=== PATIENT | female | born 1995 | race Caucasian/White ===

== ENCOUNTER 2019-09-21 12:15 | Outpatient (CLI) | payer OTHER, SELFPAY ==
--- NOTE | ~2019-09-21 | US_ITS ---
EXAMINATION: US OB <=14 wk fetus w TV DATE: 09/21/2019 13:01 INDICATION: Threatened . Spotting. TECHNIQUE: Real-time transabdominal and transvaginal pelvic ultrasound was performed. COMPARISON: None. FINDINGS: TRANSABDOMINAL ULTRASOUND: The uterus measures 11.6 x 6.8 x 4.9 cm. TRANSVAGINAL ULTRASOUND: There is an intrauterine gestational sac. A yolk sac is identified. The fet al crown rump length measures 0.4, which correlates with an estimated gestational age of 6 weeks and 1 day(s) (+/-) 4 day(s). heart motion is identified measuring 116 beats per minute (bpm) by M-m ode Doppler. There are 2 small subchorionic hematomas. The right ovary measures 3.0 x 1.4 x 1.6 cm. T he left ovary measures 3.8 x 2.8 x 2.4 cm. There is no free fluid in the pelvis. IMPRESSION: 1. Single living intrauterine gestation with estimated date of delivery of 05/15/2020. 2. Two small subchorionic hematomas. Reviewed, dictated and finalized at location A.
== END 2019-09-21 12:16 | disposition home or self-care (01) ==
PROVIDERS: PCP Family Medicine; Visit Provider Obstetrics & Gynecology
DX: O20.0 Threatened abortion (principal); O36.8911 Maternal care for other specified fetal problems, first trimester, fetus 1
CPT/HCPCS: 76801; 76817

== ENCOUNTER 2020-03-01 10:01 | Observation (INO) | payer OTHER, SELFPAY ==
[2020-03-01] VITALS (13 sets, daily range): BP systolic 99–106; BP diastolic 49–60; PULSE 77–93; O2SAT 100; BMI 34.0
[2020-03-01 11:40] LABS: Add Urine Microscopic? YES; Appearance Urine Cloudy (Clear); Bacteria Urine Trace /hpf; Bilirubin Urine Negative (Negative); Blood Urine Negative (Negative); Color Urine Yellow (Yellow); Glucose Urine UA Negative (Negative); Ketones Urine Negative (Negative); Leukocyte Esterase Ur 2+ LEU/UL (NEGATIVE); Mucus Urine Moderate /lpf; Nitrate Urine Negative (Negative); Protein Urine Negative (Negative); RBC Urine 0-2 /hpf (0-2); Specific Grav Ur 1.021 (1.001-1.035); Squamous Epithelial Cell Urine Many /hpf (Few); Urobilinogen Urine Negative mg/dL (<2.0)
[2020-03-01] MEDS: TERBUTALINE SULFATE 1 MG/ML VIAL 0.25 MG SUB-Q (12:32)
--- NOTE | 2020-03-01 12:37 | PM.OBTRLD ---
OB - Triage/Final Diagnosis Visit Information Date of evaluation: 03/01/20 Reason for evaluation: threatened labor and other (uti) Evaluation Laboratory results: Laboratory Tests 03/01/20 11:25 Urine Color Yellow Urine Appearance Cloudy H Urine pH 6.0 Ur Specific [place] 1.021 Urine Protein Negative Urine Glucose (UA) Negative Urine Ketones Negative Ur Blood (Man) Negative Urine Nitrate Negative Urine Bilirubin Negative Urine Urobilinogen Negative Ur Leukocyte Esterase 2+ H Urine RBC 0-2 Urine WBC 10-15 H Ur Squamous Epith Cells Many H Urine Bacteria Trace Urine Mucus Moderate H Vital signs: Vital Signs - 24 hr 03/01/20 10:25 03/01/20 10:27 03/01/20 10:30 Pulse Rate 93 Blood Pressure 105/60 Pulse Oximetry 100 100 03/01/20 10:31 03/01/20 10:35 03/01/20 10:40 Pulse Rate 88 Blood Pressure 106/49 L Pulse Oximetry 100 100 03/01/20 10:45 03/01/20 10:46 03/01/20 10:50 Pulse Rate 86 Blood Pressure 99/57 L Pulse Oximetry 100 100 03/01/20 10:55 03/01/20 11:00 03/01/20 11:01 Pulse Rate 86 Blood Pressure 105/58 L Pulse Oximetry 100 100 03/01/20 11:05 Pulse Rate Blood Pressure Pulse Oximetry 100
[2020-03-01 13:20] LABS: Fetal Fibronectin Negative
== END 2020-03-01 13:40 | disposition home or self-care (01) ==
PROVIDERS: Admitting Provider Obstetrics & Gynecology; PCP Family Medicine; Visit Provider Obstetrics & Gynecology
DX: O47.9 False labor, unspecified (principal); O23.40 Unspecified infection of urinary tract in pregnancy, unspecified trimester; Z3A.00 Weeks of gestation of pregnancy not specified
CPT/HCPCS: 81001; 82731; 87077; 87086; 87088; 96372; G0378; G0379; J3105

== ENCOUNTER 2020-03-29 21:10 | Observation (INO) | payer OTHER, SELFPAY ==
[2020-03-29 21:34] VITALS: TEMP 36.4; BMI 36.6
[2020-03-29 21:39] VITALS: BP 102/56; PULSE 84
[2020-03-29 23:36] LABS: Add Urine Microscopic? YES; Appearance Urine Cloudy (Clear); Bacteria Urine Trace /hpf; Bilirubin Urine Negative (Negative); Blood Urine Negative (Negative); Color Urine Yellow (Yellow); Glucose Urine UA Negative (Negative); Ketones Urine Negative (Negative); Leukocyte Esterase Ur 1+ LEU/UL (NEGATIVE); Mucus Urine Heavy /lpf; Nitrate Urine Negative (Negative); Protein Urine 1+ mg/dL (Negative); Squamous Epithelial Cell Urine Many /hpf (Few); Urobilinogen Urine Negative mg/dL (<2.0); WBC Urine 21-30 /hpf (0-3)
--- NOTE | 2020-03-30 00:24 | OBADM ---
This patient, Elvi Brewster, admitted to the OB room OB Post 115 for observation. Patient/family oriented to hospital policies and general routines including ID bracelet, bed and alarms, visiting hours, pain management, procedures, bathroom and other care routines, personal items, smoking policy, room service/diet, and visiting hours. Patient/Family are encouraged to report perceived risks to care and to ask questions if they do not understand what they are told or what they should do.
--- NOTE | 2020-04-11 13:10 | PM.OBTRLD ---
OB - Triage/Final Diagnosis Evaluation Laboratory results: Laboratory Tests 03/29/20 23:14 Urine Color Yellow Urine Appearance Cloudy H Urine pH 5.0 Ur Specific [place] 1.030 Urine Protein 1+ H Urine Glucose (UA) Negative Urine Ketones Negative Ur Blood (Man) Negative Urine Nitrate Negative Urine Bilirubin Negative Urine Urobilinogen Negative Ur Leukocyte Esterase 1+ H Urine RBC 3-5 H Urine WBC 21-30 H Ur Squamous Epith Cells Many H Urine Bacteria Trace Urine Mucus Heavy H Final Diagnosis (1) False labor: Code(s): O47.9 - False labor, unspecified Status: Acute
== END 2020-03-30 00:19 | disposition home or self-care (01) ==
PROVIDERS: Admitting Provider Obstetrics & Gynecology; PCP Family Medicine; Visit Provider Obstetrics & Gynecology
DX: O47.9 False labor, unspecified (principal); Z3A.00 Weeks of gestation of pregnancy not specified
CPT/HCPCS: 81001; 87086; 87088; G0378; G0379

== ENCOUNTER 2020-04-25 21:26 | Observation (INO) | payer OTHER, SELFPAY ==
[2020-04-25 22:00] VITALS: TEMP 36.9
--- NOTE | 2020-04-25 22:00 | OBADM ---
This patient, Elvi Brewster, admitted to the OB room Labor/Delivery/Recovery 120 for observation. Patient/family oriented to hospital policies and general routines including ID bracelet, bed and alarms, visiting hours, pain management, procedures, bathroom and other care routines, personal items, smoking policy, room service/diet, and visiting hours. Patient/Family are encouraged to report perceived risks to care and to ask questions if they do not understand what they are told or what they should do.
--- NOTE | 2020-04-25 22:55 | PC.NURSE ---
Pt states contractions have decreased. Has occasional one and rates as 1-2. ROM plus in negative. Update Dr. Giancarlo Smallwood. Will discharge home.
[2020-04-26 00:36] VITALS: BMI 37.8
--- NOTE | 2020-04-29 23:20 | PM.OBTRLD ---
OB - Triage/Final Diagnosis Visit Information Reason for evaluation: threatened labor
== END 2020-04-25 23:00 | disposition home or self-care (01) ==
PROVIDERS: Admitting Provider Obstetrics & Gynecology; PCP Family Medicine; Visit Provider Obstetrics & Gynecology
DX: O47.03 False labor before 37 completed weeks of gestation, third trimester (principal); Z3A.37 37 weeks gestation of pregnancy
CPT/HCPCS: 84112; G0378; G0379

== ENCOUNTER 2020-05-04 07:59 | Outpatient (CLI) | payer OTHER, SELFPAY ==
[2020-05-04 08:46] LABS: Basophils Percent Auto 0.4 % (0.2-1.2); Eosinophils Absolute Auto 0.3 K/mm3 (0-0.3); Eosinophils Percent Auto 2.4 % (0-4.4); Hematocrit 28.7 % (37.0-47.0); Hemoglobin 8.2 g/dL (12.0-15.0); Immature Granulocyte Absolute 0.04 K/mm3 (0.00-0.031); Immature Granulocyte Percent A 0.4 % (0-0.5); Lymphocytes Absolute Auto 2.15 K/mm3 (0.9-3.2); Lymphocytes Percent Auto 20.3 % (18.3-44.2); Mean Corpuscular HGB Conc 28.6 g/dl (32-36); Mean Corpuscular Hemoglobin 18.7 pg (26-34); Mean Corpuscular Volume 65.4 fl (80-100); Mean Platelet Volume 10.3 fl (7.4-10.4); Monocytes Absolute Auto 0.7 K/mm3 (0.1-0.6); Monocytes Percent Auto 6.5 % (2.6-8.5); Neutrophils Absolute Auto 7.4 K/mm3 (1.3-6.7); Platelet Count Result 293 k/mm3 (150-375); Red Blood Count 4.39 M/mm3 (4.2-5.4); Red Cell Distribution Width 19.1 % (11.5-14.5); White Blood Count 10.6 K/mm3 (4.5-10.0)
[2020-05-04 09:37] LABS: Ovalocytes 2+ (NORMAL); Platelet Estimate Adequate (Adequate)
[2020-05-06 07:02] LABS: Rapid Plasma Reagin Non-Reactive (NonReactive)
== END 2020-05-04 08:00 | disposition home or self-care (01) ==
PROVIDERS: PCP Family Medicine; Visit Provider Obstetrics & Gynecology
DX: O34.218 Maternal care for other type scar from previous cesarean delivery (principal); Z3A.34 34 weeks gestation of pregnancy
CPT/HCPCS: 36415; 85025; 86592; 86850; 86900; 86901

== ENCOUNTER 2020-05-06 07:29 | Inpatient (IN) | payer OTHER, SELFPAY ==
--- NOTE | 2020-04-16 15:01 | PC.NURSE ---
VERIFIED WITH OR SCHEDULE AND PATIENT--C/S ON 05/06/20 AT 0900 PATIENT GIVEN REQUISITION FOR LAB DRAW ON 05/04/2020
--- NOTE | 2020-04-30 09:57 | PM.IMHP ---
H&P: HPI History of Present Illness Date/Time: 04/30/20 09:57 Chief complaint: Pre-admit Narrative: Elvi Brewster is a 24 year old female Para 3 para 2 1 menstrual period was 08/05/2019 whose EDC is 05/03/2020 presents at term for repeat section. She is negative for group B strep. She has had 2 previous sections. Her had been uncomplicated Review of Systems Review of Systems: All systems reviewed & are unremarkable except as noted in HPI and below PMFSH Family History Family History Father Diabetes mellitus Hypertension Grandparent Diabetes mellitus Pacemaker Grandparent Heart attack Social History Social History Substance use: never Spiritual care concerns: No Meds Home Medications and Allergies Home Medications Medication Instructions Recorded Confirmed Type ferrous sulfate 1 mg PO DAILY 03/29/20 03/29/20 History Allergies Allergy/AdvReac Type Severity Reaction Status Date / Time No Known Allergies Allergy Verified 04/16/20 14:43 Exam Const: General: no acute distress Eyes: General: appearance normal, both eyes and all related structures Neck: Neck: supple and no JVD Thyroid: thyroid normal Resp: Effort & Inspection: normal respiratory effort Auscultation: clear to auscultation bilaterally Cardio: Rate: regular rate Rhythm: regular rhythm GI: Inspection: non-distended GI Palp: Yes Soft to palpation, No Tenderness to palpation present (GI) and No Guarding due to palpation present (GI) Auscultation: normal bowel sounds : General: Yes other ( gravid soft uterus) Skin: General skin exam: no rashes or lesions noted Extrem: General: normal to inspection and no edema Psych: Mental Status: mental status grossly normal Affect: normal affect Assessment and Plan Additional Plan impression: Term with previous section Plan: Repeat low-transverse section and
[2020-05-06] VITALS (60 sets, daily range): BP systolic 77–178; BP diastolic 40–153; PULSE 54–130; RESP 14–19; TEMP 36.4–37; O2SAT 89–100; BMI 38.3
--- NOTE | 2020-05-06 06:42 | WPDHPUPDATE1 ---
History and Physical Update Update Date/Time: 05/06/20 06:42 History and Physical has been reviewed, including an updated exam of the patient. There are NO changes in the patient's condition. Risks, benefits, and alternatives have been discussed and questions answered. Patient agrees to proceed with procedure.
--- NOTE | 2020-05-06 07:55 | LDADM ---
This patient, Elvi Brewster, was admitted to Labor/Delivery/Recovery 119 on 05/06/20 at 07:29. Plans for scheduled section, pain management and were discussed with patient. Patient/family oriented to hospital policies and general routines including ID bracelet, bed and alarms, visiting hours, pain management, procedures, bathroom and other care routines, personal items, smoking policy, room service/diet and guest tray routines, security routines, and visiting hours. Patient/Family are encouraged to report perceived risks to care and to ask questions if they do not understand what they are told or what they should do. See OBIX for further documentation.
[2020-05-06] MEDS: LACTATED RINGERS 1,000 ML 125 ML IV CONT ×2 (08:05→10:28)
[2020-05-06] MEDS: KETOROLAC 30 MG/ML VIAL (*BKC) IV PUSH ×2 (09:50→15:08)
--- NOTE | 2020-05-06 10:00 | PM.PROC ---
Procedure Note - Detailed Date of procedure: 05/06/20 Pre-op diagnosis: section Surgeon: Paolo Freeman MD Postop diagnosis: Term / previous section Procedure: Repeat low-transverse section Q BL: 365cc Anesthesia: Spinal Findings: 6 lb 9 oz female with Apgars of 8 and 9 at 1 and 5 minutes respectively Complications: None Description of procedure: The patient is prepped and draped in normal sterile fashion placed in the supine position. Under excellent spinal anesthetic the abdomen was entered in Pfannenstiel fashion progress her layers to the fascia. Fascia was incised in an upward outward fashion bilaterally. The underlying muscles were sharply dissected. Prior peritoneum entered by Tata clamps and entered by sharp dissection superiorly and inferiorly to the dome bladder. Bladder flap was obstructed bladder blade was placed a bladder flap formed and the bladder blade returned. A low transverse incision made. The head was delivered in the HAMMAD position . anterior and posterior shoulders were delivered. The cord clamped x2 and cut. passed off the table. Apgars were given at of 1 minute at 8 and 9 [id number]. Cord blood was drawn post. Placenta delivered intact spontaneously. After assuring no membranes or remainder of the uterus, the uterus was closed with continuous running 0 Vicryl from lateral edge to lateral edge. This was followed by a 2nd imbricating running locking 0 Vicryl from lateral edge to lateral edge. Hemostasis was assured. Ovaries and tubes appeared within normal limits. The uterus returned to the abdomen. The laps removed and accounted for. The incision on the uterus inspected 1 last time and noted to be hemostatic. The laps removed and the skin fascia closed with continuous running 0 Vicryl from lateral edge to midline bilaterally. Irrigation of the subcutaneous layer was followed by closure of the skin with 4 O Monocryl and glue. Blood loss by Q BL was 365cc. Mom and baby are doing fine at the time of dictation. All sponge, needle, instrument counts were correct. There were no immediate complications
--- NOTE | 2020-05-06 10:25 | P.PNAN_ITS ---
Anes - Initial Pre Proc Eval Procedure: Operation Date: 05/06/20 09:00 Proposed Procedures p Repeat Section - Paolo Freeman MD Date/Time: 05/06/20 10:25 Surgeon: Paolo Freeman MD Pre Op Diagnosis: section Patient Data Age: 24 Gender: F Height: 1.52 m Weight: 89 kg Last Vital Signs Temp 36.4 C L 05/06/20 08:16 Pulse 70 05/06/20 10:21 BP 108/47 L 05/06/20 10:21 Pulse Ox 100 05/06/20 10:21 Allergies Allergy/AdvReac Type Severity Reaction Status Date / Time No Known Allergies Allergy Verified 04/16/20 14:43 Home Medications Medication Instructions Recorded Confirmed Type hydrocodone-acetaminophen [[place]] 1 tablet PO Q4H PRN #30 tablet 05/06/20 Rx Patient hx anesthesia problems: none Family hx anesthesia problems: none PMFSH Past Medical History Medical History (Updated 05/06/20 @ 10:25 by Rickie Shearer DO) Anemia Asthma Family History Family History Father Diabetes mellitus Hypertension Grandparent Diabetes mellitus Pacemaker Grandparent Heart attack Social History Social History Smoking status: Never smoker Substance use: never Spiritual care concerns: No Anes - Eval Final PreProcedure Day of Procedure 05/06/20 10:25 Patient weight: obese Heart: regular rate and rhythm Lungs: clear to auscultation and normal air movement Airway: Mallampati scale class II Neurological: alert and oriented Last oral intake: >/= 8 hours ASA classification: III Emergent: no Anesthetic plan: proceed Anesthesia type and monitoring: regional spinal and standard monitoring Informed Consent: The patient's anesthetic plan and its attendant risks and benefits were discussed with the patient/family/POA. Questions were solicited and answers provided to the satisfaction of the patient/family/POA.
[2020-05-06] MEDS: OXYTOCIN 30 UNITS/NS 500 ML 30 UNITS/500 ML BAG 125 UNITS IV CONT (10:55)
[2020-05-06] MEDS: ONDANSETRON INJ 4 MG/2 ML VIAL (12:28)
--- NOTE | 2020-05-06 13:36 | PC.NURSE ---
This patient, Elvi Brewster, was received from PACU on 05/06/20 at 1230. Patient/family oriented to unit policies and routines
[2020-05-06] MEDS: KCL 20 MEQ/D5/0.45% SOD CHL 1,000 ML 125 ML IV CONT (15:11)
[2020-05-06] MEDS: diphenhydrAMINE HCl INJ 50 MG/ML VIAL 25 MG IV PUSH (18:30)
[2020-05-07] VITALS: BP 105/52; PULSE 96; RESP 16; TEMP 37.2; O2SAT 100
[2020-05-07 04:15] VITALS: BP 105/51; PULSE 86; RESP 16; TEMP 37.2; O2SAT 100
[2020-05-07] MEDS: IBUPROFEN 600 MG TABLET PO ×2 (04:21→12:42)
[2020-05-07 05:30] LABS: Basophils Absolute Auto 0.1 K/mm3 (0.0-0.1); Basophils Percent Auto 0.4 % (0.2-1.2); Eosinophils Absolute Auto 0.2 K/mm3 (0-0.3); Eosinophils Percent Auto 1.6 % (0-4.4); Hematocrit 23.9 % (37.0-47.0); Immature Granulocyte Absolute 0.05 K/mm3 (0.00-0.031); Immature Granulocyte Percent A 0.4 % (0-0.5); Lymphocytes Percent Auto 15.6 % (18.3-44.2); Mean Corpuscular HGB Conc 29.3 g/dl (32-36); Mean Corpuscular Volume 64.9 fl (80-100); Monocytes Absolute Auto 1.1 K/mm3 (0.1-0.6); Monocytes Percent Auto 8.8 % (2.6-8.5); Neutrophils Absolute Auto 9.4 K/mm3 (1.3-6.7); Neutrophils Percent Auto 73.2 % (45.5-73.1); Platelet Count Result 249 k/mm3 (150-375); Red Blood Count 3.68 M/mm3 (4.2-5.4); White Blood Count 12.8 K/mm3 (4.5-10.0)
--- NOTE | 2020-05-07 06:45 | PM.OBPNVD ---
OB - PN: Subj Subjective Date/time seen: 05/07/20 06:46 Patient comments: no complaints and pain well controlled baby status: doing well OB - PN: Obj Data Labs CBC & Chem 7: 05/07/20 04:33 OB - PN A/P Plan day: 1 Plan: routine care Time Spent With Patient Time: Total time spent is greater than 50% in coordination of care (as documented) at patient's floor/unit and/or counseling patient: Time with patient: less than 15 minutes Review of Systems Review of Systems: All systems reviewed & are unremarkable except as noted in HPI and below Exam Const: General: no acute distress Eyes: General: appearance normal, both eyes and all related structures Neck: Neck: supple and no JVD Thyroid: thyroid normal Resp: Effort & Inspection: normal respiratory effort Auscultation: clear to auscultation bilaterally Cardio: Rate: regular rate Rhythm: regular rhythm GI: Inspection: normal to inspection, incision (clean dry intact) and striae GI Palp: Yes Soft to palpation Percussion: Yes normal to percussion Auscultation: normal bowel sounds : General: Yes bladder normal to palpation External Female Exam: normal external appearance Speculum Exam - Vagina: normal vaginal discharge and No vaginal bleeding Speculum Exam - Cervix: nontender Bimanual exam- vagina & uterus: bladder normal to palpation and No Cervical tenderness present OB/external & speculum: No vaginal bleeding Skin: General skin exam: no rashes or lesions noted Extrem: General: normal to inspection and no edema Psych: Mental Status: mental status grossly normal Affect: normal affect
[2020-05-07 06:49] LABS: Anisocytosis 2+ (NORMAL); Hypochromasia 1+ (NORMAL); Platelet Estimate Adequate (Adequate)
[2020-05-07 08:25] VITALS: BP 107/60; PULSE 80; RESP 16; TEMP 36.9; O2SAT 100
[2020-05-07 11:02] VITALS: PULSE 80; RESP 16; O2SAT 100
[2020-05-07] MEDS: MULTIVIT/MIN/PREN/FOL AC/IRON TABLET 1 TAB PO (11:02)
[2020-05-07] MEDS: POLYSACCHARIDE IRON COMPLEX 150 MG CAPSULE PO ×2 (11:02→17:02)
--- NOTE | 2020-05-07 11:07 | WPDANLDPN2 ---
Anes-Prog Note L&D Date/Time: 05/07/20 11:07 Comfortable throughout: section Neuraxial method: spinal Epidural/Spinal procedure site: clean & non-tender Neuro status: Neuro function grossly intact. Cardiovascular status: normal Respiratory status: normal Airway patency: baseline Mental status: baseline Post-Op hydration status: normal Vital Signs: Last Vital Signs Temp 36.9 C 05/07/20 08:25 Pulse 80 05/07/20 08:25 Resp 16 05/07/20 08:25 BP 107/60 05/07/20 08:25 Pulse Ox 100 05/07/20 08:25 Pain score (VAS): 3 I/O: Intake & Output 05/06/20 05/07/20 05/07/20 23:59 07:59 15:59 Intake Total 500 750 Output Total 750 1050 Balance -250 -300 Post-procedural complaints: none Patient feedback: Patient satisfied with anesthetic care.
--- NOTE | 2020-05-07 11:07 | WPDANLDNPN2 ---
Anes-Prog Note L&D-Neuraxial Date/Time: 05/07/20 11:07 Neuraxial medications: intrathecal PF morphine Opiod-related complaints: none Patient feedback: Patient satisfied with post-operative pain management.
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
[2020-05-07] MEDS: ACETAMINOPHEN 325 MG TABLET 650 MG PO (17:04)
[2020-05-07] MEDS: SIMETHICONE 80 MG TAB.CHEW PO (17:05)
[2020-05-07 19:00] VITALS: BP 120/65; PULSE 80; RESP 16; TEMP 37.1
[2020-05-08] MEDS: SIMETHICONE 80 MG TAB.CHEW PO ×2 (04:40→08:52)
[2020-05-08] MEDS: IBUPROFEN 600 MG TABLET PO (04:41)
[2020-05-08] MEDS: ACETAMINOPHEN 325 MG TABLET 650 MG PO (04:42)
--- NOTE | 2020-05-08 06:29 | PM.DS ---
DS: Admitting Diagnosis Admitting Diagnosis Admitting Diagnosis: section Term with previous section DS: Summary Time Spent with Patient Time attestation: Total time spent providing and/or coordinating discharge services: patient was admitted for repeat section. Underwent an unremarkable procedure please see the details. Remained afebrile, was up, [place] difficulty, passing gas, eating regular diet, and generally thought complaints. She did have a low hemoglobin of 7.0 but that was down from 8.2 preop and she was instructed to take iron sulfate. Exam Const: General: no acute distress Eyes: General: appearance normal, both eyes and all related structures Neck: Neck: supple and no JVD Thyroid: thyroid normal Resp: Effort & Inspection: normal respiratory effort Auscultation: clear to auscultation bilaterally Cardio: Rate: regular rate Rhythm: regular rhythm GI: Inspection: non-distended GI Palp: Yes Soft to palpation, No Tenderness to palpation present (GI) and No Guarding due to palpation present (GI) Auscultation: normal bowel sounds : General: Yes bladder normal to palpation External Female Exam: normal external appearance Speculum Exam - Vagina: normal vaginal discharge and No vaginal bleeding Speculum Exam - Cervix: nontender Bimanual exam- vagina & uterus: bladder normal to palpation and No Cervical tenderness present OB/external & speculum: No vaginal bleeding Skin: General skin exam: no rashes or lesions noted Extrem: General: normal to inspection and no edema Psych: Mental Status: mental status grossly normal Affect: normal affect DS: Data Data Completed and Pending Labs on day of discharge: Labs from last 24 hours 05/07/20 04:33 WBC 12.8 H RBC 3.68 L Hgb 7.0 L Hct 23.9 L MCV 64.9 L MCH 19.0 L MCHC 29.3 L RDW 19.0 H Plt Count 249 MPV 11.0 H Immature Gran % (Auto) 0.4 Neut % (Auto) 73.2 H Lymph % (Auto) 15.6 L [place] % (Auto) 8.8 H Eos % (Auto) 1.6 Baso % (Auto) 0.4 Lymph # (Auto) 2.00 [place] # (Auto) 1.1 H Eos # (Auto) 0.2 Baso # (Auto) 0.1 Abs Immat Gran (auto) 0.05 H Absolute Neuts (auto) 9.4 H Absolute Nucleated RBC 0.0 Nucleated RBC % 0.0 Platelet Estimate Adequate Hypochromasia 1+ Anisocytosis 2+ Discharge Plan Discharge Attending physician on discharge: Paolo Freeman Discharging Clinician: Paolo Freeman Patient Disposition: Home, Self-Care Activity: may shower, no straining, may drive after 2 weeks and pelvic rest Diet: heart healthy Wound Care Instructions: follow printed instructions Patient Instructions: Antibiotic Form Stand Alone Forms: General Discharge Information Follow-up/Referrals: Paolo Freeman MD [Physician] - Discharge Medications: New hydrocodone-acetaminophen [[place]] 5-325 mg tablet 1 tablet PO Q4H PRN (Reason: pain) Qty: 30 RF: 0 Date of admission: 05/06/20 07:29 Primary Care Provider: Lucina,Araceli Mays Admitting Provider: Paolo Freeman Attending physician on admission: Paolo Freeman Condition: Stable
--- NOTE | 2020-05-08 06:32 | P.PNOB_ITS ---
OB - PN: Subj Subjective Date/time seen: 05/08/20 06:32 Patient comments: no complaints and pain well controlled baby status: doing well and nursing well OB - PN: Obj Data Labs CBC & Chem 7: 05/07/20 04:33 Labs: Laboratory Results - last 24 hr 05/07/20 04:33 WBC 12.8 H RBC 3.68 L Hgb 7.0 L Hct 23.9 L MCV 64.9 L MCH 19.0 L MCHC 29.3 L RDW 19.0 H Plt Count 249 MPV 11.0 H Immature Gran % (Auto) 0.4 Neut % (Auto) 73.2 H Lymph % (Auto) 15.6 L [place] % (Auto) 8.8 H Eos % (Auto) 1.6 Baso % (Auto) 0.4 Lymph # (Auto) 2.00 [place] # (Auto) 1.1 H Eos # (Auto) 0.2 Baso # (Auto) 0.1 Abs Immat Gran (auto) 0.05 H Absolute Neuts (auto) 9.4 H Absolute Nucleated RBC 0.0 Nucleated RBC % 0.0 Platelet Estimate Adequate Hypochromasia 1+ Anisocytosis 2+ OB - PN A/P Plan day: 2 Plan: routine care, discharge home and follow up 6 weeks (4 weeks) Time Spent With Patient Time: Total time spent is greater than 50% in coordination of care (as documented) at patient's floor/unit and/or counseling patient: Time with patient: less than 15 minutes Review of Systems Review of Systems: All systems reviewed & are unremarkable except as noted in HPI and below Exam Const: General: no acute distress Eyes: General: appearance normal, both eyes and all related structures Neck: Neck: supple and no JVD Thyroid: thyroid normal Resp: Effort & Inspection: normal respiratory effort Auscultation: clear to auscultation bilaterally Cardio: Rate: regular rate Rhythm: regular rhythm GI: Inspection: non-distended GI Palp: Yes Soft to palpation, No Tenderness to palpation present (GI) and No Guarding due to palpation present (GI) Auscultation: normal bowel sounds : General: Yes bladder normal to palpation External Female Exam: normal external appearance Speculum Exam - Vagina: normal vaginal discharge and No vaginal bleeding Speculum Exam - Cervix: nontender Bimanual exam- vagina & uterus: bladder normal to palpation and No Cervical tenderness present OB/external & speculum: No vaginal bleeding Skin: General skin exam: no rashes or lesions noted Extrem: General: normal to inspection and no edema Psych: Mental Status: mental status grossly normal Affect: normal affect
[2020-05-08 08:15] VITALS: BP 109/59; PULSE 89; RESP 16; TEMP 36.5; O2SAT 100
[2020-05-08] MEDS: MULTIVIT/MIN/PREN/FOL AC/IRON TABLET 1 TAB PO (08:51)
[2020-05-08] MEDS: POLYSACCHARIDE IRON COMPLEX 150 MG CAPSULE PO (08:51)
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
[2020-05-10 15:22] VITALS: BP 135/70; PULSE 110; RESP 20; TEMP 37.1; O2SAT 100
== END 2020-05-08 10:15 | disposition home or self-care (01) | DRG 540 ==
LOC: ANHLDR 07:32 → ANHOB2 12:36
PROVIDERS: Admitting Provider Obstetrics & Gynecology; PCP Family Medicine; Visit Provider Obstetrics & Gynecology
PROC: 10D00Z1 Extraction of Products of Conception, Low, Open Approach (ICD-10-PCS; CPT 59514; principal; 2020-05-06 09:00)
DX: O34.211 Maternal care for low transverse scar from previous cesarean delivery (principal); Z3A.39 39 weeks gestation of pregnancy; Z37.0 Single live birth; O99.214 Obesity complicating childbirth; E66.9 Obesity, unspecified
CPT/HCPCS: 36415; 85025; A9270; J0131; J0461; J1200; J1885; J2274; J2370; J2405; J2590; J3480; J7120

== ENCOUNTER 2021-01-16 10:28 | Emergency (ER) | payer OTHER, SELFPAY ==
--- NOTE | 2021-01-16 10:33 | ED.GENADULT ---
HPI - General Adult General Chief complaint: Upper Respiratory Infection Stated complaint: sore throat, chest pain with inspiration 3 days Time Seen by Provider: 01/16/21 10:32 History of Present Illness HPI narrative: Patient is a 25-year-old female who comes emergency room today complaining of sore throat that has been present for the last 3 days. She denies any fevers. No cough. No sinus congestion or ear pain. Has pain with swallowing but no other trouble swallowing. No voice changes. She also notes for the last 2 days she has been having pain in her right flank area. No nausea, vomiting, urinary symptoms, diarrhea, constipation. The pain is present intermittently, basically only present with deep breathing and movements of the trunk. Denies previous history of similar symptoms. Pain is mild in nature. Denies any possibility of . Related Data Allergies Allergy/AdvReac Type Severity Reaction Status Date / Time No Known Allergies Allergy Verified 01/16/21 10:45 Review of Systems Constitutional: Constitutional: Reports as per HPI, Denies fever(s), Denies night sweats and Denies weakness ENT: Reports as per HPI Comments: She is here for sore throat. Cardiovascular: Cardiovascular: Denies chest pain, Denies edema, Denies leg edema, Denies dyspnea and Denies orthopnea Respiratory: Respiratory: Denies cough and Denies dyspnea Gastrointestinal: Gastrointestinal: Denies abdominal pain, Denies constipation, Denies diarrhea, Denies nausea and Denies vomiting Genitourinary: Comments: See HPI for flank pain Musculoskeletal: Musculoskeletal: Denies abnormal gait, Denies back pain, Denies numbness and Denies tingling Neurologic: Denies Abnormal speech present, Denies abnormal gait, Denies numbness, Denies tingling and Denies weakness Psychiatric: Psychiatric: Denies homicidal ideation and Denies suicidal ideation [facility] Past Medical History Medical History (Updated 01/16/21 @ 12:35 by Rickie Navarro PA-C) Anemia Asthma Family History Family History Father Diabetes mellitus Hypertension Grandparent Diabetes mellitus Pacemaker Grandparent Heart attack Social History Social History Smoking status: Never smoker Substance use: never Spiritual care concerns: No Exam Narrative: Pleasant, well-appearing Const: General: cooperative, healthy appearing, comfortable, no acute distress, well developed, alert, awake and Physically active Orientation/consciousness: patient oriented x3 HENMT: Head: normal to inspection, normocephalic and atraumatic Ears: external ears normal, TM normal on the right and mastoids normal General nose exam: Normal external nose present Face and sinus: sinuses nontender Teeth and gingiva: dentition normal Throat: uvula midline, no peritonsillar masses, posterior oropharynx abnormal, uvula not displaced and no uvular edema Other: 2+ tonsillar edema bilaterally with exudates. Abscess. Uvula midline. Tender cervical lymphadenopathy bilaterally. No submental edema or tongue elevation or any signs of Kang's angina. Eyes: Pupils: Equal, round and reactive pupils present EOM: EOMs intact bilaterally Neck: Neck: normal visual inspection Chest: Chest palpation & inspection: normal inspection of the chest and no tenderness Resp: Effort & Inspection: normal respiratory effort and able to speak in complete sentences Auscultation: clear to auscultation bilaterally Cardio: Rate: regular rate Rhythm: regular rhythm GI: Inspection: normal to inspection GI Palp: Yes abdominal tenderness (Tender to palpate over right flank, right upper quadrant, right lower quadr), Yes Soft to palpation, No Guarding due to palpation present (GI) and No Rigid due to palpation : General: Yes no CVA tenderness Back/Spine/Pelvis: Back: no CVA tenderness Skin: General skin
[2021-01-16 10:39] VITALS: BP 127/63; PULSE 100; RESP 15; TEMP 36.8; O2SAT 100
[2021-01-16 13:15] VITALS: BP 122/77; PULSE 102; RESP 16; O2SAT 100
== END 2021-01-16 13:15 | disposition home or self-care (01) ==
PROVIDERS: Emergency Provider Emergency Medicine; PCP Family Medicine
DX: J02.0 Streptococcal pharyngitis (principal); R10.9 Unspecified abdominal pain; J45.909 Unspecified asthma, uncomplicated; Z86.2 Personal history of diseases of the blood and blood-forming organs and certain disorders involving the immune mechanism
CPT/HCPCS: 96372; 99283; J1100

== ENCOUNTER 2021-10-27 07:22 | Emergency (ER) | payer OTHER, SELFPAY ==
--- NOTE | ~2021-10-27 | XR_ITS ---
EXAMINATION: XR chest 2V DATE: 10/27/2021 08:17 INDICATION: Shortness of breath. Wheezing. TECHNIQUE: Frontal and lateral views of the chest were obtained. COMPARISON: Chest single view 10/30/2018, CT abdomen and pelvis 08/09/2013 FINDINGS: The chest demonstrates clear lungs without pneumonia, pleural effusion, or pneumothorax. Th e heart size is normal. IMPRESSION: 1. No acute cardiopulmonary disease. Reviewed, dictated and finalized at location B.
[2021-10-27 07:29] VITALS: BP 143/84; PULSE 93; RESP 18; TEMP 36.5; O2SAT 100
--- NOTE | 2021-10-27 08:30 | ED.GENADULT ---
HPI - General Adult General Chief complaint: Unspecified Stated complaint: Bilateral Flank Pain Time Seen by Provider: 10/27/21 07:35 Source: patient History of Present Illness HPI narrative: Patient complains of bilateral chest soreness. Reports her symptoms started today while she was at work she feels a tightness in her chest she also notes history of asthma and is felt like she has had some expiratory wheezing. Her pain is achy worse with deep inspiration, no radiation, has been constant but is been improved since arrival to the emergency room. Denies any recent hospitalizations or surgeries she denies any history of blood clots denies any estrogen use. Denies any significant family history of cardiac issues. Related Data Allergies Allergy/AdvReac Type Severity Reaction Status Date / Time No Known Allergies Allergy Verified 01/16/21 10:45 Review of Systems Review of Systems: CONSTITUTIONAL: Denies fever, chills, or sweats. EYES: Denies visual changes, redness, or discharge. ENT: Denies rhinorrhea, congestion, sore throat, or otalgia. CARDIOVASCULAR: Denies palpitations, or edema. RESPIRATORY: Reports expiratory wheezing denies any cough GASTROINTESTINAL: Denies abdominal pain, nausea, vomiting, or diarrhea. GENITOURINARY: Denies dysuria or hematuria. SKIN: Denies rash or itching. MUSCULOSKELETAL: Denies back pain, joint pain, or myalgia. NEUROLOGIC: Denies headache, numbness, dizziness, or weakness. PSYCHIATRIC: Denies anxiety or depression. All systems reviewed & are unremarkable except as noted in HPI and below PMFSH Past Medical History Medical History Anemia Asthma Family History Family History Father Diabetes mellitus Hypertension Grandparent Diabetes mellitus Pacemaker Grandparent Heart attack Social History Social History Smoking status: Never smoker Substance use: never Spiritual care concerns: No Exam Narrative: GENERAL: Well-appearing, well-nourished, and in no acute distress. HEAD: Normocephalic, atraumatic. EYES: PERRLA and EOMI. ENT: Nares clear, no rhinorrhea or epistaxis. Mucous membranes moist. NECK: Supple. No masses. No JVD CHEST: Clear to auscultation. No respiratory distress. No wheezes rales or rhonchi. Tenderness palpation on the bilateral lower lateral chest wall HEART: Regular rate and rhythm. No murmur heard. Normal peripheral pulses. ABDOMEN: Soft, nontender, nondistended, normal active bowel sounds. EXTREMITIES: Normal range of motion. No edema. SKIN: Warm, dry, no rash. NEURO: No focal deficits. Alert and oriented x3. PSYCH: Normal mood and affect. Course Reevaluation(s) Reevaluation #1: Patient resting comfortably results and plan reviewed with patient. Patient is comfortable outpatient plan. She continues report improvement. Date: 10/27/21 Time: 08:34 Vital Signs Vital signs: Vital Signs Temperature 36.5 C 10/27/21 07:29 Pulse Rate 93 10/27/21 07:29 Respiratory Rate 18 10/27/21 07:29 Blood Pressure 143/84 H 10/27/21 07:29 Pulse Oximetry 100 10/27/21 07:29 Temperature 36.5 C 10/27/21 07:29 Pulse Rate 93 10/27/21 07:29 Respiratory Rate 18 10/27/21 07:29 Blood Pressure 143/84 H 10/27/21 07:29 Pulse Oximetry 100 10/27/21 07:29 Medical Decision Making MDM Narrative Medical decision making narrative: H&P as above, vss, pt looks clinically well, exam with clear lungs, imaging without acute process, additional labs/img considered, symptomatic relief available as needed, patient was offered nebulized therapy declined on reevaluation pt continues to looks clinically well. Suspect chest wall pain, dns pneumonia, severe sepsis, pneumothorax, ACS, PE. plan to tx/monitor as op w/ pcm f/u findings/plan discussed with pt, pt agree/comfortable with plan, return precaut
== END 2021-10-27 09:04 | disposition home or self-care (01) ==
PROVIDERS: Emergency Provider Emergency Medicine; PCP Family Medicine
DX: R07.89 Other chest pain (principal); Z86.2 Personal history of diseases of the blood and blood-forming organs and certain disorders involving the immune mechanism
CPT/HCPCS: 71046; 99283

== ENCOUNTER 2021-11-18 10:30 | Emergency (ER) | payer OTHER, SELFPAY ==
[2021-11-18 11:05] VITALS: BP 75/61; PULSE 118; RESP 16; TEMP 37.3; O2SAT 100
--- NOTE | 2021-11-18 11:05 | ED.URI ---
HPI - URI/Sore Throat General Chief Complaint: Upper Respiratory Infection Stated Complaint: Sore Throat Time Seen by Provider: 11/18/21 11:06 Source: patient and RN notes reviewed Mode of arrival: ambulatory Limitations: no limitations History of Present Illness HPI Narrative: 26-year-old female presents to the [facility] with complaints of a sore throat. Patient reports sore throat is been going on for couple of days. Does not know if she has had a fever. Denies chest pain or abdominal pain. Multiple people sick in her household Denies nausea vomiting or diarrhea. Related Data Allergies Allergy/AdvReac Type Severity Reaction Status Date / Time No Known Allergies Allergy Verified 01/16/21 10:45 Review of Systems Review of Systems: All systems reviewed & are unremarkable except as noted in HPI and below Constitutional: Constitutional: Reports no additional constitutional complaints, Denies chills and Denies fever(s) Eyes: Eyes: Reports no additional eye complaints ENT: Reports as per HPI and Reports sore throat Cardiovascular: Cardiovascular: Reports no additional cardiovascular complaints Respiratory: Respiratory: Reports no additional respiratory complaints Gastrointestinal: Gastrointestinal: Reports no additional gastrointestinal complaints Musculoskeletal: Musculoskeletal: Reports no additional musculoskeletal complaints Integumentary/Breasts: Skin/Breast: Reports system reviewed and no additional complaints, except as docu Neurologic: Reports system reviewed and no additional complaints, except as documented Psychiatric: Psychiatric: Reports no additional psychiatric complaints Allergic/Immunologic: Allergic/Immunologic: Reports no additional allergic/immunologic complaints PMFSH Past Medical History Medical History Anemia Asthma Family History Family History Father Diabetes mellitus Hypertension Grandparent Diabetes mellitus Pacemaker Grandparent Heart attack Social History Social History Smoking status: Never smoker Substance use: never Spiritual care concerns: No Comments At the time of my signature, I reviewed and agree with the nursing past medical, surgical, social, and family history. There is no relevant family history pertinent to the patient complaint. Exam Const: General: healthy appearing, no acute distress and alert Nutritional Appearance: well nourished Orientation/consciousness: patient oriented x3 Limitations: no limitations HENMT: Head: normal to inspection Ears: external ears normal Throat: uvula midline, abnormal tonsil bilateral erythema and hypertrophy 2+ and posterior oropharynx abnormal erythema Eyes: General: appearance normal, both eyes and all related structures Pupils: Equal, round and reactive pupils present Neck: Neck: normal visual inspection, no meningeal signs and lymphadenopathy bilateral submandibular soft and tender Chest: Chest palpation & inspection: normal inspection of the chest Resp: Effort & Inspection: normal respiratory effort and no use of accessory muscles Auscultation: clear to auscultation bilaterally, no crackles, no rales, no rhonchi and no wheezes Cardio: Rate: tachycardic Rhythm: regular rhythm Back/Spine/Pelvis: Cervical Spine: normal cervical lordosis Thoracic/Lumbar Spine: thoracic and lumbar spine normal to inspection Skin: General skin exam: normal color Rashes: no rashes Wounds: no wounds Neuro: General: patient oriented x3, moves all extremities, no meningeal signs and no focal motor deficits Cranial nerves: Yes Equal, round and reactive pupils present Speech: normal speech Gait exam (Neuro): Normal gait present Extrem: General: normal to inspection, full ROM and capillary refill normal Psych: Appearance: grossly normal and well kempt Menta
[2021-11-18 11:53] VITALS: BP 117/76
== END 2021-11-18 11:53 | disposition home or self-care (01) ==
PROVIDERS: Emergency Provider Nurse Practitioner; PCP Family Medicine
DX: J02.0 Streptococcal pharyngitis (principal); J45.909 Unspecified asthma, uncomplicated
CPT/HCPCS: 87880; 99213; G0463

== ENCOUNTER 2021-12-22 05:25 | Emergency (ER) | payer OTHER, SELFPAY ==
--- NOTE | ~2021-12-22 | XR_ITS ---
EXAMINATION: XR ankle LT min 3V DATE: 12/22/2021 06:04 INDICATION: Lateral malleolus pain. TECHNIQUE: 3 views of left ankle were obtained. COMPARISON: None. FINDINGS: Bone alignment is normal. No fracture. Joint spaces are well maintained. There is an enthes ophyte at posterior aspect of calcaneal tuberosity. IMPRESSION: 1. No fracture. Reviewed, dictated and finalized at location A. IMPRESSION: 1. No fracture.
[2021-12-22 05:29] VITALS: BP 120/66; PULSE 78; RESP 16; TEMP 36.3; O2SAT 100
--- NOTE | 2021-12-22 06:02 | ED.LOWEXIN ---
HPI - Extremity Injury (Lower) General Chief Complaint: Extremity Injury, Lower Stated Complaint: left ankle pain Time Seen by Provider: 12/22/21 05:34 Source: patient History of Present Illness HPI Narrative: Patient reports left ankle pain for the past few days. Patient ports her pain is achy, constant, worse with walking around, no radiation. Her pain is primarily on the outside of referred and wraps around the backside. She denies any specific injury to the area such as rolling in or falling. Report remote history of a prior stress fracture and is concerned maybe she reinjured a stress fracture. Denies any focal numbness or weakness. She is attempted NSAIDs and Joseph wrap however symptoms have not improved. She feels like her pain is worse this morning so she came the ER for further evaluation. Patient reports she walks around a lot at work is unsure that is contributing to her symptoms. She denies any recent antibiotics Related Data Home Medications Medication Instructions Recorded Confirmed No Home Medications 12/22/21 12/22/21 Allergies Allergy/AdvReac Type Severity Reaction Status Date / Time No Known Allergies Allergy Verified 12/22/21 05:34 Review of Systems Review of Systems: CONSTITUTIONAL: Denies fever, chills, or sweats. EYES: Denies visual changes, redness, or discharge. CARDIOVASCULAR: Denies chest pain, palpitations, or edema. RESPIRATORY: Denies cough or dyspnea. SKIN: Denies rash or itching. MUSCULOSKELETAL: Denies back pain, joint pain, or myalgia. NEUROLOGIC: Denies headache, numbness, dizziness, or weakness. PMFSH Past Medical History Medical History Anemia Asthma Family History Family History Father Diabetes mellitus Hypertension Grandparent Diabetes mellitus Pacemaker Grandparent Heart attack Social History Social History Smoking status: Never smoker Substance use: never Spiritual care concerns: No Exam Narrative: GENERAL: Well-appearing, well-nourished, and in no acute distress. HEAD: Normocephalic, atraumatic. EYES: PERRLA and EOMI. ENT: Nares clear, no rhinorrhea or epistaxis. Mucous membranes moist. NECK: Supple. No masses. No JVD EXTREMITIES: Normal range of motion. Normal edema on the left ankle there is tenderness palpation on the posterior aspect of the lateral malleolus there is also tenderness along the Achilles tendon on the left. There is no obvious deformity ankle joint appears stable distal extremity has sensation and strength intact as well as cap refill less than 2 seconds there is no open or draining wounds SKIN: Warm, dry, no rash. NEURO: No focal deficits. Alert and oriented x3. PSYCH: Normal mood and affect. Course Reevaluation(s) Reevaluation #1: Patient resting comfortably results and plan reviewed with patient. Patient is comfortable with outpatient plan. Date: 12/22/21 Time: 06:08 Vital Signs Vital signs: Vital Signs Temperature 36.3 C L 12/22/21 05:29 Pulse Rate 78 12/22/21 05:29 Respiratory Rate 16 12/22/21 05:29 Blood Pressure 120/66 12/22/21 05:29 Pulse Oximetry 100 12/22/21 05:29 Oxygen Delivery Room Air 12/22/21 05:29 Temperature 36.3 C L 12/22/21 05:29 Pulse Rate 78 12/22/21 05:29 Respiratory Rate 16 12/22/21 05:29 Blood Pressure 120/66 12/22/21 05:29 Pulse Oximetry 100 12/22/21 05:29 Oxygen Delivery Room Air 12/22/21 05:29 MDM - Extremity Injury (Lower) MDM Narrative Medical decision making narrative: H&P as above, vss, pt looks clinically well, exam tenderness along the lateral malleolus and Achilles tendon imaging without acute process, additional labs/img considered, symptomatic relief available as needed, on reevaluation pt continues to looks clinically well. Suspect tendinitis, dns fracture, dislocation
== END 2021-12-22 06:17 | disposition home or self-care (01) ==
PROVIDERS: Emergency Provider Emergency Medicine; PCP Family Medicine
DX: M77.9 Enthesopathy, unspecified (principal)
CPT/HCPCS: 73610; 99283

== ENCOUNTER 2022-03-11 12:34 | Emergency (ER) | payer OTHER, SELFPAY ==
--- NOTE | ~2022-03-11 | XR_ITS ---
EXAMINATION: XR chest 1V portable INDICATION: Right upper quadrant pain TECHNIQUE: Portable AP chest at 1300 hours COMPARISON: None available FINDINGS: The lungs are free of acute opacities. No pleural effusion or pneumothorax. The cardiomedia stinal silhouette is normal. IMPRESSION: 1. No acute cardiopulmonary abnormality. Reviewed, dictated and finalized at location A.
--- NOTE | ~2022-03-11 | US_ITS ---
US abdomen limited INDICATION: Right upper quadrant abdominal pain PROCEDURE: Realtime right upper abdominal ultrasound. COMPARISON: No prior studies for comparison. FINDINGS: The pancreas is normal without focal mass or pancreatic ductal dilation. Mildly increased liver echotexture, consistent with fatty infiltration with focal fatty sparing near the gallbladder f darek. There is normal directional flow in the portal vein. There is a 4 mm gallbladder polyp. No gallstones or significant gallbladder wall thickening. Common bile duct measures 4 mm. No sonographic Bahena's sign. IMPRESSION: 1: Gallbladder polyp measuring 4 mm. Reviewed, dictated and finalized at location B.
[2022-03-11 12:42] VITALS: BP 134/77; PULSE 100; RESP 18; TEMP 36.6; O2SAT 100
--- NOTE | 2022-03-11 12:48 | ED.GENADULT ---
HPI - General Adult General Chief complaint: Abdominal Pain Stated complaint: abd pain Time Seen by Provider: 03/11/22 12:40 History of Present Illness HPI narrative: This is a 26-year-old female presenting ED with 1 week of abdominal pain. Patient says the pain is located in the epigastric and right upper quadrant. It is a sharp pain that radiates to her back. At its worst it is 10/10 intensity but this time is 7 out 10. Patient says the pain comes and goes but is getting worse. She has never experienced pain like this before. This improved with rest and worse with eating and drinking. She has had multiple episodes of nausea and vomiting per day. She started having diarrhea in the last 2 days. Patient denies fever, chills, chest pain, difficulty breathing. Patient's last menstrual period was today. Patient denies chance of . Patient's mother had her gallbladder removed in her 30s. Related Data Allergies Allergy/AdvReac Type Severity Reaction Status Date / Time No Known Allergies Allergy Verified 03/11/22 12:39 Review of Systems Review of Systems: CONSTITUTIONAL: Denies night sweats. EYES: No eye pain ENT: Denies rhinorrhea CARDIOVASCULAR: Denies palpitations RESPIRATORY: Denies hemoptysis GASTROINTESTINAL: Denies hematemesis GENITOURINARY: Denies hematuria. SKIN: Denies rash MUSCULOSKELETAL: Denies myalgia. NEUROLOGIC: Denies weakness. PSYCHIATRIC: Denies delusions PMFSH Past Medical History Medical History Anemia Asthma Family History Family History Father Diabetes mellitus Hypertension Grandparent Diabetes mellitus Pacemaker Grandparent Heart attack Social History Social History Smoking status: Never smoker Substance use: never Spiritual care concerns: No Exam Narrative: APPEARANCE: No apparent distress. Patient is polite and pleasant during the interview Head atraumatic. EYES: PERRLA/EOMI, NOSE: Normal no drainage NECK: Supple, Trachea midline RESPIRATORY: CTAB, No increased work of breathing. CARDIOVASCULAR: S1S2 appreciated ABD: abdomen is obese. Patient has tenderness to palpation that is worse in the right upper quadrant. There is no guarding or rebound. Bowel sounds are present. MUSCULOSKELETAl: No obvious deformities NEURO: Alert. Moving 4/4 extremities SKIN:: Warm, dry. Normal color PSYCHIATRIC: Normal affect Course Vital Signs Vital signs: Vital Signs Temperature 97.8 F 03/11/22 12:42 Pulse Rate 100 03/11/22 12:42 Respiratory Rate 18 03/11/22 12:42 Blood Pressure 134/77 03/11/22 12:42 Pulse Oximetry 100 03/11/22 12:42 Temperature 97.8 F 03/11/22 12:42 Pulse Rate 100 03/11/22 12:42 Respiratory Rate 18 03/11/22 12:42 Blood Pressure 134/77 03/11/22 12:42 Pulse Oximetry 100 03/11/22 12:42 Medical Decision Making MDM Narrative Medical decision making narrative: This is a 26-year-old female presenting ED with epigastric and right upper quadrant abdominal pain. Differential includes gastritis, gastroenteritis, peptic ulcer disease, gallbladder pathology. Abdominal lab work has been ordered. The right upper quadrant ultrasounds in order to evaluate her gallbladder. Patient has been treated symptomatically with fluids, Zofran, Pepcid and IV Tylenol. CMP and CBC were within normal limits. Lipase was not elevated. Urinalysis showed +1 leuk esterase, RBC > 75 per HPF, >75 WBC/hpf, +1 leuk esterase. Patient is currently on her period. She has noted that she has had increased urinary frequency but no dysuria or urgency. Right upper quadrant ultrasound revealed a polyp in the patient's gallbladder but no evidence of cholecystitis or cholelithiasis. Upon re-evaluation the patient is resting comfortably. Her vital signs are still stable.
[2022-03-11] MEDS: SODIUM CHLORIDE 0.9% IV 2,000 ML 999 ML IV CONT (12:56)
[2022-03-11 12:59] LABS: Appearance Urine Cloudy (Clear); Bilirubin Urine 1+ (Negative); Blood Urine 3+ (Negative); Color Urine Amber (Yellow); Glucose Urine UA Negative (Negative); Ketones Urine Trace mg/dL (Negative); Leukocyte Esterase Ur 1+ LEU/UL (Negative); Nitrate Urine Negative (Negative); Protein Urine 3+ mg/dL (Negative); Specific Grav Ur >= 1.030 (1.001-1.035); Urobilinogen Urine 0.2 mg/dL (<2.0); pH Urine 5.5 (5.0-9.0)
[2022-03-11] MEDS: FAMOTIDINE 20 MG/2 ML VIAL IV PUSH (13:00)
[2022-03-11] MEDS: ONDANSETRON INJ 4 MG/2 ML VIAL IV PUSH (13:00)
[2022-03-11 13:12] LABS: Mucus Urine Heavy /lpf; RBC Urine >75 /hpf (0-2); Squamous Epithelial Cell Urine Many /hpf (Few); WBC Urine >75 /hpf
[2022-03-11 13:15] LABS: Basophils Percent Auto 0.5 % (0.2-1.2); Eosinophils Absolute Auto 0.2 K/mm3 (0-0.3); Eosinophils Percent Auto 3.3 % (0-4.4); Hematocrit 39.6 % (37.0-47.0); Immature Granulocyte Absolute 0.03 K/mm3 (0.00-0.031); Immature Granulocyte Percent A 0.5 % (0-0.5); Lymphocytes Absolute Auto 1.25 K/mm3 (0.9-3.2); Lymphocytes Percent Auto 19.8 % (18.3-44.2); Mean Corpuscular HGB Conc 30.3 g/dl (32-36); Mean Corpuscular Hemoglobin 22.7 pg (26-34); Mean Platelet Volume 10.2 fl (7.4-10.4); Monocytes Absolute Auto 0.7 K/mm3 (0.1-0.6); Monocytes Percent Auto 10.6 % (2.6-8.5); Neutrophils Absolute Auto 4.1 K/mm3 (1.3-6.7); Neutrophils Percent Auto 65.3 % (45.5-73.1); Platelet Count Result 323 k/mm3 (150-375); Red Blood Count 5.28 M/mm3 (4.2-5.4); White Blood Count 6.3 K/mm3 (4.5-10.0)
[2022-03-11 13:26] LABS: Alanine Aminotransferase 58 U/L (6-35); Albumin Level 4.2 g/dL (3.5-5.1); Alkaline Phosphatase 59 U/L (38-126); Anion Gap 10 mmol/L (8-16); Aspartate Amino Transferase 69 U/L (14-36); Bilirubin,Total 0.3 mg/dL (0.2-1.3); Blood Urea Nitrogen 9 mg/dL (7-17); Calcium 8.5 mg/dL (8.4-10.2); Carbon Dioxide 25 mmol/L (22-30); Chloride 102 mmol/L (98-107); Estimated CRCL calculation 118 ml/min; Estimated Glomerular Filt Rate > 60; Glucose 88 mg/dL (65-110); Lipase 100 U/L (23-300); Potassium 3.5 mmol/L (3.4-5.0); Sodium 137 mmol/L (137-145)
[2022-03-11 13:26] LABS: Add Urine Microscopic? YES
[2022-03-11 14:30] VITALS: BP 142/76; PULSE 86; RESP 16; O2SAT 99
[2022-03-11] MEDS: MAG HYDROX/AL HYDROX/SIMETH 30 ML UDC PO (14:41)
== END 2022-03-11 15:17 | disposition home or self-care (01) ==
PROVIDERS: Emergency Medicine; Emergency Provider Emergency Medicine; PCP Family Medicine
DX: R10.13 Epigastric pain (principal); N39.0 Urinary tract infection, site not specified; K29.70 Gastritis, unspecified, without bleeding; K82.4 Cholesterolosis of gallbladder; J45.909 Unspecified asthma, uncomplicated
CPT/HCPCS: 36415; 71045; 76705; 80053; 81001; 81025; 83690; 85025; 87086; 87088; 96365; 96366; 96375; 99284; A9270; J0131; J2405; J7030

== ENCOUNTER 2022-07-10 07:50 | Outpatient (CLI) | payer OTHER, SELFPAY ==
--- NOTE | ~2022-07-10 | NM_ITS ---
EXAMINATION: NM hepatobiliary wo pharm DATE: 07/10/2022 10:19 INDICATION: Right upper quadrant abdominal pain. COMPARISON: Ultrasound 03/11/2022 TECHNIQUE: 4.78 mCi Tc-99m mebrofenin (Choletec) was administered intravenously. Scintigraphic image s of the abdomen were obtained for one hour. Then, the patient drank 8 oz Ensure, and imaging was con tinued for 60 minutes. FINDINGS: There is normal clearance of radiotracer from the blood pool. There is homogeneous tracer u ptake by the liver. Activity progresses to the bowel and gallbladder. Gallbladder ejection fraction (GBEF) was 52%. Note that with this technique, normal GBEF >= 33%. IMPRESSION: 1. Normal hepatobiliary scintigraphy. Reviewed, dictated and finalized at location A. MACHINE OPERATOR
== END 2022-07-10 07:51 | disposition home or self-care (01) ==
PROVIDERS: PCP Family Medicine; Visit Provider Family Medicine
DX: R10.11 Right upper quadrant pain (principal)
CPT/HCPCS: 78226; A9537

== ENCOUNTER 2023-09-02 17:46 | Emergency (ER) | payer OTHER, SELFPAY ==
[2023-09-02 17:48] VITALS: BP 145/88; PULSE 99; RESP 18; TEMP 36.4; O2SAT 100
--- NOTE | 2023-09-02 17:52 | ED.GENADULT ---
HPI - General Adult General Chief complaint: Unspecified Stated complaint: RASH,FINGERS NUMB Time Seen by Provider: 09/02/23 17:53 Source: patient Mode of arrival: ambulatory Limitations: no limitations History of Present Illness HPI narrative: Patient is a 27 y/o female who presents to the ED with c/o rash and numbness. Patient works at a local [employer]. She was states she was forced to use the sanitizing solution today and developed a rash to her bilateral dorsal hands afterwards. States it is itchy. Has tried using topical Benadryl without much improvement. She then began noticing that her bilateral knees were going numb around 5:00 p.m. today when she was on her work break. She then prompted here. She admits that she was feeling very stressed and overwhelmed today at work. Denies weakness, cramping. Related Data Allergies Allergy/AdvReac Type Severity Reaction Status Date / Time No Known Allergies Allergy Verified 03/11/22 12:39 Review of Systems Review of Systems: CONSTITUTIONAL: Denies fever, chills, or sweats. SKIN: See HPI NEUROLOGIC: See HPI All systems reviewed & are unremarkable except as noted in HPI and below PMFSH Past Medical History Medical History Anemia Asthma Family History Family History Father Diabetes mellitus Hypertension Grandparent Diabetes mellitus Pacemaker Grandparent Heart attack Social History Social History Smoking status: Never smoker Substance use: never Spiritual care concerns: No Exam Narrative: GENERAL: Anxious appearing, Morbidly obese with BMI of 43.6, non-toxic, in no acute distress. HEAD: Normocephalic, atraumatic. RESPIRATORY: Airway patent, respirations nonlabored. CARDIOVASCULAR: Regular rate and rhythm MUSCULOSKELETAL: Moves all extremities. No gross deformities. Sensation intact throughout hands. SKIN: Warm, dry, normal color. scattered erythematous macules to bilateral dorsal hands. No pustules, vesicles, sloughing of skin, necrosis. NEURO: A&OX3. CN II-XII grossly intact. Steady gait. No ataxic movements. PSYCHIATRIC: Anxious, tearful. Normal interaction. Course Vital Signs Vital signs: Vital Signs Temperature 97.6 F 09/02/23 17:48 Pulse Rate 99 09/02/23 17:48 Respiratory Rate 18 09/02/23 17:48 Blood Pressure 145/88 H 09/02/23 17:48 Pulse Oximetry 100 09/02/23 17:48 Oxygen Delivery Room Air 09/02/23 17:48 Temperature 97.6 F 09/02/23 17:48 Pulse Rate 99 09/02/23 17:48 Respiratory Rate 18 09/02/23 17:48 Blood Pressure 145/88 H 09/02/23 17:48 Pulse Oximetry 100 09/02/23 17:48 Oxygen Delivery Room Air 09/02/23 17:48 Medical Decision Making MDM Narrative Medical decision making narrative: patient present ED with rash and paresthesias to bilateral pinky fingers. Vital signs are stable upon arrival. Patient is very anxious appearing, tearful, discussing several events that occurred today that caused her to be very stressed and overwhelmed at work. She is neurologically intact on exam. Symptoms consistent with anxiety/ panic, hyperventilation. Rash is consistent with contact dermatitis. 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 will prescribe hydrocortisone cream. Advised to continue Benadryl. Advised to stay well hydrated, recommended calming environment at home. Recommended follow-up with PCP for further evaluation. Given return precautions. Medical Records Medical records reviewed: Yes I reviewed the external patient's medical records. Vital Signs Vital Signs: Vital Signs Temperature 97.6 F 09/02/23 17:48 Pulse Rate 99 09/02/23 17:48 Respiratory Rate 18 09/02/23 17:48
== END 2023-09-02 18:15 | disposition home or self-care (01) ==
LOC: ANHED 18:13
PROVIDERS: Emergency Provider Physician Assistant; PCP Family Medicine
DX: L24.5 Irritant contact dermatitis due to other chemical products (principal); R20.2 Paresthesia of skin; J45.909 Unspecified asthma, uncomplicated; Z86.2 Personal history of diseases of the blood and blood-forming organs and certain disorders involving the immune mechanism
CPT/HCPCS: 99283

== ENCOUNTER 2024-03-07 07:42 | Emergency (ER) | payer OTHER, SELFPAY ==
[2024-03-07 07:48] VITALS: BP 115/88; PULSE 104; RESP 16; TEMP 36.5; O2SAT 100
[2024-03-07 07:50] VITALS: PULSE 96; RESP 18; TEMP 36.7; O2SAT 100
[2024-03-07 07:57] VITALS: O2SAT 99
[2024-03-07] MEDS: guaiFENesin/DEXTROMETHORPHAN 10 ML UDC PO (08:32)
--- NOTE | 2024-03-07 08:34 | ED.GENADULT ---
HPI - General Adult General Chief complaint: Upper Respiratory Infection Stated complaint: cough Time Seen by Provider: 03/07/24 07:59 History of Present Illness HPI narrative: This is a 28-year-old female presenting with 8 weeks of cough. Patient said she had a viral illness 8 weeks ago. Since then she has had a persistent cough. She feels like she has tripped coming down from her nose. She is denying fevers chills nausea vomiting diarrhea shortness breath or abdominal pain. He does have some chest pain when she coughs frequently. She has been taking DayQuil with some relief. Related Data Allergies Allergy/AdvReac Type Severity Reaction Status Date / Time No Known Allergies Allergy Verified 03/07/24 07:44 [facility] Past Medical History Medical History Anemia Asthma Family History Family History Father Diabetes mellitus Hypertension Grandparent Diabetes mellitus Pacemaker Grandparent Heart attack Social History Social History Smoking status: Never smoker Substance use: never Spiritual care concerns: No Exam Narrative: APPEARANCE: No apparent distress. Well-appearing Head: TMs normal, no erythema or exudates of posterior oropharynx EYES: EOMI, NOSE: Atraumatic NECK: Trachea midline RESPIRATORY: No increased rate of breathing, CTAB CARDIOVASCULAR: RRR, ABDOMINAL: Non-distended MUSCULOSKELETAl: No obvious deformities NEURO: Alert. Moving 4/4 extremities SKIN:: Warm, dry. Normal color PSYCHIATRIC: Normal affect Course Vital Signs Vital signs: Vital Signs Temperature 97.7 F 03/07/24 07:48 Pulse Rate 104 H 03/07/24 07:48 Respiratory Rate 16 03/07/24 07:48 Blood Pressure 115/88 03/07/24 07:48 Pulse Oximetry 100 03/07/24 07:48 Temperature 98.1 F 03/07/24 07:50 Pulse Rate 96 03/07/24 07:50 Respiratory Rate 18 03/07/24 07:50 Blood Pressure 115/88 03/07/24 07:48 Pulse Oximetry 99 03/07/24 07:57 Oxygen Delivery Room Air 03/07/24 07:57 Medical Decision Making [facility] Narrative Medical decision making narrative: -Course: 28-year-old female presenting with 8 weeks of cough. Patient has nasal drippage. She also had a viral illness. No other concerning findings on physical exam. Vital signs are stable lungs are clear and she feels well overall. Treatment for cough was discussed with the patient including different medication options. Patient be discharged follow-up. Work was provided. -DDX includes but is not limited to: Postnasal drip, postviral cough, viral illness -Interventions: Robitussin DM -Shared decision making / Disposition: Discharged Vital Signs Vital Signs: Vital Signs Temperature 97.7 F 03/07/24 07:48 Pulse Rate 104 H 03/07/24 07:48 Respiratory Rate 16 03/07/24 07:48 Blood Pressure 115/88 03/07/24 07:48 Pulse Oximetry 100 03/07/24 07:48 Temperature 98.1 F 03/07/24 07:50 Pulse Rate 96 03/07/24 07:50 Respiratory Rate 18 03/07/24 07:50 Blood Pressure 115/88 03/07/24 07:48 Pulse Oximetry 99 03/07/24 07:57 Oxygen Delivery Room Air 03/07/24 07:57 Discharge Plan Discharge Clinical Impression: Cough Patient Disposition: Home, Self-Care Condition: Stable Instructions: Antibiotic Form, Postnasal Drip (DC) Additional Instructions: Using emergency department for a cough. You can try Robitussin DM, Mucinex cephalitis or honey for symptoms. Return to ED if you develop fevers or feel like you are getting ill. Otherwise please follow-up your primary care physician. Prescriptions: No Action famotidine [Pepcid] 20 mg tablet 20 mg PO BID 42 Days Qty: 84 0RF ondansetron 4 mg tablet,disintegrating 4 mg PO Q8H PRN (Reason: nausea and vomiting) Qty: 10 0RF cephalexin 500 mg capsule 500 mg PO Q12H 10 Da
== END 2024-03-07 08:47 | disposition home or self-care (01) ==
PROVIDERS: Emergency Provider Emergency Medicine; PCP Family Medicine
DX: R05.9 Cough, unspecified (principal); D64.9 Anemia, unspecified; J45.909 Unspecified asthma, uncomplicated
CPT/HCPCS: 99282; A9270

== ENCOUNTER 2024-05-29 18:49 | Emergency (ER) | payer OTHER, SELFPAY ==
[2024-05-29 18:59] VITALS: BP 130/80; PULSE 80; RESP 16; TEMP 36.4; O2SAT 100
[2024-05-29 19:29] VITALS: BP 129/86; PULSE 82; RESP 16; TEMP 36.8; O2SAT 100
[2024-05-29 20:07] LABS: Strep Group A RT-PCR NOT DETECTED (Negative)
--- NOTE | 2024-05-29 20:40 | ED.URI ---
HPI - URI/Sore Throat General Chief Complaint: Upper Respiratory Infection Stated Complaint: SORE THROAT Time Seen by Provider: 05/29/24 19:44 Source: patient Mode of arrival: ambulatory Limitations: no limitations History of Present Illness HPI Narrative: this is a 28-year-old female that presents to the emergency department for sore throat. Ongoing since yesterday. Reports some runny nose and congestion. Denies fevers. Related Data Allergies Allergy/AdvReac Type Severity Reaction Status Date / Time No Known Allergies Allergy Verified 03/07/24 07:44 Review of Systems Review of Systems: CONSTITUTIONAL: Denies fever ENT: Reports rhinorrhea, congestion, sore throat All systems reviewed & are unremarkable except as noted in HPI and below PMFSH Past Medical History Medical History Anemia Asthma Family History Family History Father Diabetes mellitus Hypertension Grandparent Diabetes mellitus Pacemaker Grandparent Heart attack Social History Social History Smoking status: Never smoker Substance use: never Spiritual care concerns: No Exam Narrative: GENERAL: Well-appearing, well-nourished, and in no acute distress. HEAD: Normocephalic, atraumatic. EYES: EOMI. ENT: Nares clear, no rhinorrhea or epistaxis. Mucous membranes moist. Oropharynx with symmetric tonsillar hypertrophy, mild exudate, no other lesions. Uvula midline. No trismus. Bilateral TMs pearly ariza non-bulging NECK: Supple. No adenopathy or masses. CHEST: Clear to auscultation. No respiratory distress. No wheezes rales or rhonchi HEART: Regular rate and rhythm. No murmur heard. Normal peripheral pulses. EXTREMITIES: Normal range of motion. No edema. SKIN: Warm, dry, no rash. NEURO: No focal deficits. Alert and oriented x3. PSYCH: Normal mood and affect Course Course Emergency Course: Patient updated on workup and agrees with plan of care Vital Signs Vital signs: Vital Signs Temperature 97.6 F 05/29/24 18:59 Pulse Rate 80 05/29/24 18:59 Respiratory Rate 16 05/29/24 18:59 Blood Pressure 130/80 05/29/24 18:59 Pulse Oximetry 100 05/29/24 18:59 Oxygen Delivery Room Air 05/29/24 18:59 Temperature 98.3 F 05/29/24 19:29 Pulse Rate 82 05/29/24 19:29 Respiratory Rate 16 05/29/24 19:29 Blood Pressure 129/86 05/29/24 19:29 Pulse Oximetry 100 05/29/24 19:29 Oxygen Delivery Room Air 05/29/24 19:29 MDM - URI/Sore Throat MDM Narrative Medical decision making narrative: patient presents to the emergency department for sore throat ongoing since yesterday. Patient with symmetric tonsillar hypertrophy. No evidence for abscess on exam. Strep is negative. Will be started on Augmentin. Instructed to have further follow-up with her primary provider. She was given warnings to return the ER Differential Diagnosis Differential diagnosis: Likely upper respiratory infection, sinusitis, viral infection and pharyngitis Lab Data Labs: Lab Results 05/29/24 Range/Units 19:26 Group A Strep (PCR) Not detected (Negative) Critical Care Time Critical Care Time Critical Care Time: No Discharge Plan Discharge Clinical Impression: Pharyngitis Qualifiers: Pharyngitis/tonsillitis etiology: unspecified etiology Qualified Code(s): J02.9 - Acute pharyngitis, unspecified Patient Disposition: Home, Self-Care Condition: Stable Instructions: Antibiotic Form, Pharyngitis (ED) Additional Instructions: Return to the emergency department for worsening symptoms, or any other concerns Remain well-hydrated, get plenty of rest. Take Tylenol or Motrin [id number] for pain as needed. Lozenges or Chloraseptic spray for sore throat. Take oral antibiotic (Augmentin) as prescribed Follow up with your primary care doctor Patient Language: Latvian Prescriptions: New amoxicillin-pot clavulanate 875-125 mg tablet 1 tablet PO Q12H 10 Days Qty: 20 0RF No Action famotidine [Pepcid] 20 mg tablet 20 mg PO BID 42 Days Qty: 84 0RF ondansetron 4 mg tablet,disintegrating 4 mg PO Q8H PRN (Reason: nausea and vomiting) Qty: 10 0RF cephalexin 500 mg capsule 500 mg PO Q12H 10 Days Qty: 20 0RF hydrocortisone 1 % cream 1 applic topical TID PRN (Reason: rash or itching) Qty: 28.35 0RF Follow-up/Referrals: Lucina,Araceli Mays MD [Primary Care Provider] - Stand Alone Forms: Work/School Release IP
[2024-05-29] MEDS: AMOXICILLIN/CLAVULANATE K 875-125 MG TAB 1 TABLET PO (20:44)
== END 2024-05-29 21:17 | disposition home or self-care (01) ==
PROVIDERS: Emergency Provider Physician Assistant; PCP Family Medicine
DX: J02.9 Acute pharyngitis, unspecified (principal); J45.909 Unspecified asthma, uncomplicated; Z86.2 Personal history of diseases of the blood and blood-forming organs and certain disorders involving the immune mechanism
CPT/HCPCS: 87651; 99283; A9270

== ENCOUNTER 2024-08-23 14:32 | Emergency (ER) | payer OTHER, SELFPAY ==
--- NOTE | ~2024-08-23 | CT_ITS ---
CT abdomen pelvis w con Ordering provider: Martin Salcedo MD History: 28 years Female with . Lower abdominal pain . Comparison: August 09, 2013 Technique: CT abdomen and pelvis with IV and without oral contrast. Automated exposure control and it erative reconstruction technique were employed. The dose-length product was 1117.95 mGy-cm. 100 mL Om nipaque 350 was given IV. Findings: VISUALIZED LOWER CHEST: Normal. UPPER ABDOMINAL ORGANS: Liver: Normal. Gallbladder: Normal. Spleen: Normal. Stomach/duodenum: Normal. Pancreas: Normal. Adrenals: Normal. Kidneys: Tiny cysts in the right kidney mid and lower poles PELVIC ORGANS: The bladder is underfilled. BOWEL AND MESENTERY: Colon: No evidence of diverticulitis.. No evidence of appendicitis. Small Bowel: Normal. No obstruction. Peritoneum/mesentery: No free air or free fluid. No mesenteric lymphadenopathy. RETROPERITONEUM: Normal aorta. No retroperitoneal lymphadenopathy. MUSCULOSKELETAL: Superficial soft tissues: Fat containing Anterior abdominal wall hernia is seen in the area of the pe lvis with a defect of about 4.4 cm. Otherwise, The superficial soft tissues are normal. Bones: Normal spine. IMPRESSION: 1. No evidence of appendicitis, diverticulitis or intestinal obstruction. 2. Anterior abdominal fat containing hernia. Reviewed, dictated and finalized at location A.
[2024-08-23 14:59] VITALS: BP 116/78; PULSE 85; RESP 18; TEMP 36.3; O2SAT 100
[2024-08-23 15:58] LABS: BEDSIDEPREGUCG Negative (Negative)
[2024-08-23 16:08] LABS: Basophils Absolute Auto 0.1 K/mm3 (0.0-0.1); Basophils Percent Auto 0.5 % (0.2-1.2); Eosinophils Absolute Auto 0.3 K/mm3 (0-0.3); Hematocrit 39.3 % (37.0-47.0); Hemoglobin 11.7 g/dL (12.0-15.0); Immature Granulocyte Absolute 0.07 K/mm3 (0.00-0.031); Immature Granulocyte Percent A 0.5 % (0-0.5); Lymphocytes Absolute Auto 3.31 K/mm3 (0.9-3.2); Lymphocytes Percent Auto 22.6 % (18.3-44.2); Mean Corpuscular HGB Conc 29.8 g/dl (32-36); Mean Corpuscular Hemoglobin 21.8 pg (26-34); Mean Corpuscular Volume 73.2 fl (80-100); Mean Platelet Volume 10.2 fl (7.4-10.4); Monocytes Absolute Auto 0.9 K/mm3 (0.1-0.6); Monocytes Percent Auto 6.2 % (2.6-8.5); Neutrophils Percent Auto 68.2 % (45.5-73.1); Platelet Count Result 492 k/mm3 (150-375); Red Blood Count 5.37 M/mm3 (4.2-5.4); Red Cell Distribution Width 15.7 % (11.5-14.5); White Blood Count 14.7 K/mm3 (4.5-10.0)
[2024-08-23 16:16] LABS: Add Urine Microscopic? YES; Appearance Urine Cloudy (Clear); Bacteria Urine 1+ /hpf; Bilirubin Urine Negative (Negative); Blood Urine Negative (Negative); Color Urine Yellow (Yellow); Glucose Urine UA Negative (Negative); Ketones Urine Trace mg/dL (Negative); Leukocyte Esterase Ur Negative LEU/UL (Negative); Nitrate Urine Negative (Negative); Non Pathogenic Casts 0-2; Protein Urine Negative (Negative); Specific Grav Ur 1.026 (1.001-1.035); Squamous Epithelial Cell Urine Moderate /hpf (Few); Urobilinogen Urine 0.2 mg/dL (<2.0); WBC Urine 0-5 /hpf (0-3)
[2024-08-23 16:21] LABS: Alanine Aminotransferase 18 U/L (6-35); Albumin Level 4.7 g/dL (3.5-5.1); Alkaline Phosphatase 61 U/L (38-126); Anion Gap 12 mmol/L (4-12); Aspartate Amino Transferase 18 U/L (14-36); Bilirubin,Total 0.4 mg/dL (0.2-1.3); Blood Urea Nitrogen 11 mg/dL (7-17); Calcium 9.6 mg/dL (8.4-10.2); Carbon Dioxide 26 mmol/L (22-30); Chloride 102 mmol/L (98-107); Estimated CRCL calculation 118 ml/min; Estimated Glomerular Filt Rate > 60; Glucose 86 mg/dL (65-110); Lipase 78 U/L (23-300); Potassium 3.5 mmol/L (3.4-5.0); Sodium 140 mmol/L (137-145)
--- OUTSIDE RECORDS SUMMARY | 2024-08-23 16:25 | XMS_ITS | CONTINUITY OF CARE DOCUMENT ---
Author Name emma carter Address Unknown Organization [facility] Address [address] [place] [address] Phone [phone] Care Team Providers Care Agency Trainer Name Role Phone DAVI COBIAN MD Unavailable [phone] INSURANCE PROVIDERS Payer name Policy type / Coverage type Michele red republican [employer] Medicaid 1 [id number]
[2024-08-23 16:42] LABS: Platelet Estimate Increased (Adequate)
[2024-08-23 16:43] LABS: Hypochromasia 1+; Microcytosis 1+ (NORMAL); Schistocytes None Seen
[2024-08-23 16:44] LABS: Anisocytosis 2+; Band Neutrophils Percent 0 % (0-6)
[2024-08-23] MEDS: SODIUM CHLORIDE 0.9% IV 1,000 ML 999 ML IV CONT (17:09)
[2024-08-23] MEDS: KETOROLAC 15 MG/ML VIAL (*BKC) IV PUSH (17:10)
--- OUTSIDE RECORDS SUMMARY | 2024-08-23 17:36 | XMS_ITS | CONTINUITY OF CARE DOCUMENT ---
Author Name emma carter Address Unknown Organization [facility] Address [address] [place] [address] Phone [phone] Care Team Providers Care Resident Hall Director Name Role Phone DAVI COBIAN MD Unavailable [phone] INS[employer]ANCE PROVIDERS Payer name Policy type / Coverage type Michele red alliance party [employer] Medicaid 1 [id number]
--- NOTE | 2024-08-23 17:42 | ED.GENADULT ---
HPI - General Adult General Chief complaint: Abdominal Pain Stated complaint: pelvic pain Time Seen by Provider: 08/23/24 15:28 History of Present Illness HPI narrative: This is a 28-year-old female presenting with 3 days of abdominal pain. Patient developed left lower quadrant abdominal pain 3 days ago that was a sharp stabbing pain, and then migrated to the right lower quadrant. It is associated with nausea vomiting and loose stools. Patient denies vaginal bleeding or discharge. She denies urinary tract infection symptoms. Last menstrual period was 2 weeks ago. No concern for STDs. Patient has had to miss work and is requesting a work note. Related Data Allergies Allergy/AdvReac Type Severity Reaction Status Date / Time No Known Allergies Allergy Verified 08/23/24 14:33 [facility] Past Medical History Medical History Anemia Asthma Family History Family History Father Diabetes mellitus Hypertension Grandparent Diabetes mellitus Pacemaker Grandparent Heart attack Social History Social History Smoking status: Never smoker Substance use: never Spiritual care concerns: No Exam Narrative: APPEARANCE: No apparent distress. Head: atraumatic. EYES: EOMI, NOSE: Atraumatic NECK: Trachea midline RESPIRATORY: No increased rate of breathing CTAB CARDIOVASCULAR: RRR, no peripheral edema ABDOMINAL: Soft nontender no guarding rebound, no CVA tenderness MUSCULOSKELETAl: No obvious deformities NEURO: Alert. Moving 4/4 extremities SKIN:: Warm, dry. Normal color PSYCHIATRIC: Normal affect Course Vital Signs Vital signs: Vital Signs Temperature 97.4 F L 08/23/24 14:59 Pulse Rate 85 08/23/24 14:59 Respiratory Rate 18 08/23/24 14:59 Blood Pressure 116/78 08/23/24 14:59 Pulse Oximetry 100 08/23/24 14:59 Oxygen Delivery Room Air 08/23/24 14:59 Temperature 97.4 F L 08/23/24 14:59 Pulse Rate 85 08/23/24 14:59 Respiratory Rate 18 08/23/24 14:59 Blood Pressure 116/78 08/23/24 14:59 Pulse Oximetry 100 08/23/24 14:59 Oxygen Delivery Room Air 08/23/24 14:59 Medical Decision Making MDM Narrative Medical decision making narrative: -Course: 28-year-old female presenting with 3 days stabbing abdominal pain associated with nausea vomiting and diarrhea. She is well-appearing exam with stable vital signs. Abdominal exam is benign. CT showed an abdominal wall hernia, but no other acute findings in the abdomen. Laboratory studies unremarkable except for a white count of 14.7. Based on the patient's history and physical her symptoms are most consistent with gastroenteritis. Patient will be discharged with Zofran and dicyclomine. She will be given return precautions. The requested work note was provided. -DDX includes but is not limited to: Gastroenteritis, colitis, appendicitis, diverticulitis hernia, ovarian torsion Vital Signs Vital Signs: Vital Signs Temperature 97.4 F L 08/23/24 14:59 Pulse Rate 85 08/23/24 14:59 Respiratory Rate 18 08/23/24 14:59 Blood Pressure 116/78 08/23/24 14:59 Pulse Oximetry 100 08/23/24 14:59 Oxygen Delivery Room Air 08/23/24 14:59 Temperature 97.4 F L 08/23/24 14:59 Pulse Rate 85 08/23/24 14:59 Respiratory Rate 18 08/23/24 14:59 Blood Pressure 116/78 08/23/24 14:59 Pulse Oximetry 100 08/23/24 14:59 Oxygen Delivery Room Air 08/23/24 14:59 Lab Data 08/23/24 15:52 08/23/24 15:52 Labs: Lab Results 08/23/24 08/23/24 Range/Units 15:52 15:56 WBC 14.7 H (4.5-10.0) K/mm3 RBC 5.37 (4.2-5.4) M/mm3 Hgb 11.7 L (12.0-15.0) g/dL Hct 39.3 (37.0-47.0) % MCV 73.2 L (80-100) fl MCH 21.8 L (26-34) pg MCHC 29.8 L (32-36) g/dl RDW 15.7 H (11.5-14.5) % Plt Count 492 H D (150-375) k/mm3 MPV 10.2 (7.4-10.4) fl Immature Gran % (Auto) 0.5 (0-0.5) % Neut % (Auto) 68.2 (45.5-73.1) % Lymph % (Auto) 22.6 (18.3-44.2) % Reagan % (Auto) 6.2 (2.6-8.5) % Eos % (Auto) 2.0 (0-4.4) % Baso % (Auto) 0.5 (0.2-1.2) % Lymph # (Auto) 3.31 H (0.9-3.2) K/mm3 Reagan # (Auto) 0.9 H (0.1-0.6) K/mm3 Eos # (Auto) 0.3 (0-0.3) K/mm3 Baso # (Auto) 0.1 (0.0-0.1) K/mm3 Abs Immat Gran (auto) 0.07 H (0.00-0.031) K/mm3 Absolute Neuts (auto) 10.0 H (1.3-6.7) K/mm3 Absolute Nucleated RBC 0.000 (0.0-0.012) K/mm3 Band Neutrophils % 0 (0-6) % Nucleated RBC % 0.0 (0.0-0.2) % Platelet Estimate Increased (Adequate) Hypochromasia 1+ Anisocytosis 2+ Microcytosis 1+ (NORMAL) Schistocytes None seen Sodium 140 (137-145) mmol/L Potassium 3.5 (3.4-5.0) mmol/L Chloride 102 (98-107) mmol/L Carbon Dioxide 26 (22-30) mmol/L Anion Gap 12 (4-12) mmol/L BUN 11 (7-17) mg/dL Creatinine 0.65 L (0.7-1.0) mg/dL Estim Creat Clear Calc 118 ml/min Estimated GFR > 60 (59 - ) Glucose 86 (65-110) mg/dL Calcium 9.6 (8.4-10.2) mg/dL Total Bilirubin 0.4 (0.2-1.3) mg/dL AST 18 (14-36) U/L ALT 18 (6-35) U/L Alkaline Phosphatase 61 (38-126) U/L Total Protein 9.0 H (6.3-8.2) g/dL Albumin 4.7 (3.5-5.1) g/dL Lipase 78 (23-300) U/L Urine Color Yellow (Yellow) Urine Appearance Cloudy H (Clear) Urine pH 5.0 (5.0-9.0) Ur Specific [place] 1.026 (1.001-1.035) Urine Protein Negative (Negative) mg/dL Urine Glucose (UA) Negative (Negative) mg/dL Urine Ketones Trace H (Negative) mg/dL Ur Blood (Man) Negative (Negative) Urine Nitrate Negative (Negative) Urine Bilirubin Negative (Negative) Urine Urobilinogen 0.2 (<2.0) mg/dL Leukocyte Esterase Rfl Negative (Negative) SONNY/UL Urine RBC 3-5 H (0-2) /hpf Urine WBC 0-5 (0-3) /hpf Ur Squamous Epith Cells Moderate (Few) /hpf Urine Bacteria 1+ H /hpf Urine Casts 0-2 POC Urine HCG, Qual Negative (Negative) Discharge Plan Discharge Clinical Impression: Abdominal pain, Nausea & vomiting, Diarrhea Patient Disposition: Home, Self-Care Condition: Stable Instructions: Antibiotic Form, Abdominal Pain (ED) Additional Instructions: He was seen emergency department for nausea vomiting and loose stools. Please use Zofran for nausea. Use Bentyl for abdominal pain. You can use Motrin Tylenol for pain. If you develop fevers severe abdominal pain or any new or worsening symptoms return ED for re-evaluation. Patient Language: Cook Islander Prescriptions: New ibuprofen 800 mg tablet 800 mg PO TID PRN (Reason: pain) 7 Days Qty: 21 0RF acetaminophen 500 mg tablet 1,000 mg PO TID PRN (Reason: marshall) 7 Days Qty: 42 0RF dicyclomine 20 mg tablet 20 mg PO BID Qty: 30 0RF ondansetron 4 mg tablet,disintegrating 4 mg PO Q8H PRN (Reason: nausea and vomiting) Qty: 30 0RF No Action famotidine [Pepcid] 20 mg tablet 20 mg PO BID 42 Days Qty: 84 0RF ondansetron 4 mg tablet,disintegrating 4 mg PO Q8H PRN (Reason: nausea and vomiting) Qty: 10 0RF cephalexin 500 mg capsule 500 mg PO Q12H 10 Days Qty: 20 0RF hydrocortisone 1 % cream 1 applic topical TID PRN (Reason: rash or itching) Qty: 28.35 0RF amoxicillin-pot clavulanate 875-125 mg tablet 1 tablet PO Q12H 10 Days Qty: 20 0RF Follow-up/Referrals: Lucina,Araceli Mays MD [Primary Care Provider] - Stand Alone Forms: Work/School Release IP
== END 2024-08-23 19:11 | disposition home or self-care (01) ==
PROVIDERS: Emergency Provider Emergency Medicine; PCP Family Medicine
DX: R10.32 Left lower quadrant pain (principal); R11.2 Nausea with vomiting, unspecified; R19.7 Diarrhea, unspecified; J45.909 Unspecified asthma, uncomplicated; D64.9 Anemia, unspecified
CPT/HCPCS: 36415; 74177; 80053; 81001; 81025; 83690; 85025; 96361; 96374; 99284; J1885; J7030; Q9967

== ENCOUNTER 2024-10-26 07:36 | Emergency (ER) | payer OTHER, SELFPAY ==
[2024-10-26 07:42] VITALS: BP 139/82; PULSE 78; RESP 16; TEMP 36.6; O2SAT 100
--- NOTE | 2024-10-26 08:15 | ED.URI ---
HPI - URI/Sore Throat General Chief Complaint: Upper Respiratory Infection Stated Complaint: I'm pretty sure I have strep Time Seen by Provider: 10/26/24 07:39 History of Present Illness HPI Narrative: Patient gets frequent episodes of strep and yesterday started having scratchy throat feels like she may have strep again. Also has a slight cough Related Data Allergies Allergy/AdvReac Type Severity Reaction Status Date / Time No Known Allergies Allergy Verified 08/23/24 14:33 Review of Systems Review of Systems: All systems reviewed & are unremarkable except as noted in HPI and below PMFSH Past Medical History Medical History Anemia Asthma Family History Family History Father Diabetes mellitus Hypertension Grandparent Diabetes mellitus Pacemaker Grandparent Heart attack Social History Social History Smoking status: Never smoker Substance use: never Spiritual care concerns: No Exam Narrative: EXAMINATION OF ORGAN SYSTEMS/BODY AREAS: Constitutional: Vital signs per nursing GENERAL:[No acute distress, non-toxic appearing.] HEAD: Normal with no signs of head trauma. EYES: EOMI, conjunctiva normal ENT: Some redness to tonsils and some minimal swelling/exudate without large amount of swelling or change in speech, no trismus LUNGS: Nonlabored breathing. HEART: [Regular rate and rhythm] ABD: [Soft], [nontender to palpation] EXT: Normal range of motion SKIN: [No rashes or lesions.] NEURO: [Alert and oriented x 3. No gross focal sensory or strength deficits.] PSYCH: Normal affect Course Vital Signs Vital signs: Vital Signs Temperature 97.8 F 10/26/24 07:42 Pulse Rate 78 10/26/24 07:42 Respiratory Rate 16 10/26/24 07:42 Blood Pressure 139/82 10/26/24 07:42 Pulse Oximetry 100 10/26/24 07:42 Oxygen Delivery Room Air 10/26/24 07:42 Temperature 98.0 F 10/26/24 09:13 Pulse Rate 76 10/26/24 09:13 Respiratory Rate 16 10/26/24 09:13 Blood Pressure 138/78 10/26/24 09:13 Pulse Oximetry 100 10/26/24 09:13 Oxygen Delivery Room Air 10/26/24 07:42 MDM - URI/Sore Throat MDM Narrative Medical decision making narrative: Patient presenting here with sore throat, she has had strep multiple times in the past and is concerned that she may have strep. She has some pharyngeal erythema but no significant swelling or exudates. Swabs today for strep, covid, rsv, flu, and mono were negative today. Stable for discharge with follow-up to PCP and return precautions. Patient declined pain medication today. Lab Data Labs: Lab Results 10/26/24 Range/Units 07:57 Monoscreen Negative (Negative) Influenza A (RT-PCR) Negative (Negative) Influenza B (RT-PCR) Negative (Negative) RSV (RT-PCR) Negative (Negative) SARS-CoV-2 RNA (RT-PCR) Negative (Negative) Group A Strep (PCR) Not detected (Negative) Discharge Plan Discharge Clinical Impression: Pharyngitis Patient Disposition: Home Condition: Stable Instructions: Pharyngitis (ED) Additional Instructions: Your swabs today for strep, covid, rsv, flu, and mono were negative today. Please follow up with your doctor; you can take ibuprofen as needed for pain; and come back for any further issues. Patient Language: [place] Prescriptions: No Action famotidine [Pepcid] 20 mg tablet 20 mg PO BID 42 Days Qty: 84 0RF ondansetron 4 mg tablet,disintegrating 4 mg PO Q8H PRN (Reason: nausea and vomiting) Qty: 10 0RF cephalexin 500 mg capsule 500 mg PO Q12H 10 Days Qty: 20 0RF hydrocortisone 1 % cream 1 applic topical TID PRN (Reason: rash or itching) Qty: 28.35 0RF amoxicillin-pot clavulanate 875-125 mg tablet 1 tablet PO Q12H 10 Days Qty: 20 0RF ibuprofen 800 mg tablet 800 mg PO TID PRN (Reason: pain) 7 Days Qty: 21 0RF acetaminophen 500 mg tablet 1,000 mg PO TID PRN (Reason: marshall) 7 Days Qty: 42 0RF dicyclomine 20 mg tablet 20 mg PO BID Qty: 30 0RF ondansetron 4 mg tablet,disintegrating 4 mg PO Q8H PRN (Reason: nausea and vomiting) Qty: 30 0RF Follow-up/Referrals: Lucina,Araceli Mays MD [Primary Care Provider] - 2 Days Stand Alone Forms: Work/School Release IP
[2024-10-26 08:30] LABS: Strep Group A RT-PCR NOT DETECTED (Negative)
[2024-10-26 08:38] LABS: Monoscreen Negative (Negative); Negative Monotest Control Negative (Negative); Positive Monotest Control Positive (Positive)
[2024-10-26 08:42] LABS: Influenza A QL RT-PCR Negative (Negative); Influenza B QL RT-PCR Negative (Negative); RSV RNA, RT-PCR Negative (Negative); SARS-CoV-2 RNA PCR Negative (Negative)
[2024-10-26 09:13] VITALS: BP 138/78; PULSE 76; RESP 16; TEMP 36.7; O2SAT 100
== END 2024-10-26 09:18 | disposition home or self-care (01) ==
PROVIDERS: Emergency Provider Emergency Medicine; PCP Family Medicine
DX: J02.9 Acute pharyngitis, unspecified (principal); Z20.822 Contact with and (suspected) exposure to COVID-19
CPT/HCPCS: 36415; 86308; 87637; 87651; 99283